=== PATIENT | male | born 1960 | race Caucasian/White ===

== ENCOUNTER 2016-10-10 07:43 | Day surgery (SDC) | payer OTHER ==
[~2016-10-10] VITALS: Ht 188 cm; Wt 95.5 kg
[2016-10-10 08:06] VITALS: BP 127/71
[2016-10-10] MEDS ORDERED: PLEASE ENTER HEIGHT AND WEIGHT MC SCH (08:30)
[2016-10-10] MEDS ORDERED: SODIUM CHLORIDE 0.9% 1,000 ML IV ONE (08:30)
[2016-10-10] MEDS ORDERED: ASPI-496 PO (08:31)
[2016-10-10] MEDS ORDERED: OMEP20TA62 PO (08:31)
[2016-10-10] MEDS ORDERED: MULT-6 PO (08:31)
[2016-10-10] MEDS ORDERED: PROPOFOL 10 MG/ML, 20ML ONE (09:16)
== END 2016-10-10 10:45 | disposition home or self-care (01) ==
LOC: CACL 07:43
PROVIDERS: ATTEND Internal Medicine Cardiovascular Disease
DX: I08.3 Combined rheumatic disorders of mitral, aortic and tricuspid valves (principal); I48.91 Unspecified atrial fibrillation; Z90.5 Acquired absence of kidney; Z88.6 Allergy status to analgesic agent; Z98.890 Other specified postprocedural states; Z82.49 Family history of ischemic heart disease and other diseases of the circulatory system; Z72.89 Other problems related to lifestyle
CPT/HCPCS: 93312; 93321; 93325; J2704

== ENCOUNTER 2016-10-20 07:16 | Day surgery (SDC) | payer OTHER ==
[2016-10-19 14:32] LABS: BLOOD UREA NITROGEN 20 mg/dL (7-18)
[~2016-10-20] VITALS: Ht 188 cm; Wt 95.5 kg
[~2016-10-20 07:16] MED LIST: ASPI-496 PO; MULT-6 PO; OMEP20TA62 PO
[2016-10-20] MEDS ORDERED: ASPI-515 PO (07:34)
[2016-10-20 08:00] VITALS: BP 147/77
[2016-10-20] MEDS ORDERED: BIVALIRUDIN 250 MG ONE (08:29)
[2016-10-20] MEDS ORDERED: FENTANYL PF 100 MCG/2ML ONE (08:29)
[2016-10-20] MEDS ORDERED: TICAGRELOR 90 MG TABLET ONE (08:29)
[2016-10-20] MEDS ORDERED: MIDAZOLAM 1 MG/ML, 5ML ONE (08:29)
[2016-10-20] MEDS ORDERED: VERAPAMIL 2.5 MG/ML, 2ML ONE (08:29)
[2016-10-20] MEDS ORDERED: HEPARIN 1,000 UNITS/ML, 10ML ONE (08:30)
[2016-10-20] MEDS ORDERED: LIDOCAINE 2%, 20ML ONE (08:30)
[2016-10-20] MEDS ORDERED: SODIUM CHLORIDE 0.9% 1,000 ML IV SCH ×2 (09:15→09:25)
== END 2016-10-20 12:40 ==
LOC: CACL 07:16
PROVIDERS: ATTEND Internal Medicine Cardiovascular Disease
DX: I34.0 Nonrheumatic mitral (valve) insufficiency (principal); I48.91 Unspecified atrial fibrillation; Z79.82 Long term (current) use of aspirin; Z88.6 Allergy status to analgesic agent
CPT/HCPCS: 36415; 71020; 80048; 85025; 93005; 93458; 99156; 99157; C1894; J1644; J2250; J3010; J3490; J7030; Q9967; J0583

== ENCOUNTER 2017-01-18 10:31 | Day surgery (SDC) | payer OTHER ==
[~2017-01-18] VITALS: Ht 188 cm; Wt 95.0 kg
[~2017-01-18 10:31] MED LIST changes: +ASPI-515 PO; +WARF5TAB PO
[2017-01-18] MEDS ORDERED: DEXTROSE 5% 500 ML IV PRN (10:59)
[2017-01-18] MEDS ORDERED: PROPOFOL 10 MG/ML, 20ML ONE (12:15)
[2017-01-19] MEDS ORDERED: MULTIVITAMIN 1 TABLET PO SCH ×2 (09:00)
[2017-01-19] MEDS ORDERED: ASPIRIN 81 MG TABLET EC PO SCH ×2 (09:00)
[2017-01-19] MEDS ORDERED: WARFARIN 5 MG TABLET PO-COUM SCH ×2 (09:00)
== END 2017-01-18 12:58 ==
LOC: CACL 10:31
PROVIDERS: ATTEND Internal Medicine Cardiovascular Disease
DX: I48.91 Unspecified atrial fibrillation (principal); I48.92 Unspecified atrial flutter; I34.1 Nonrheumatic mitral (valve) prolapse; Z79.82 Long term (current) use of aspirin; Z88.6 Allergy status to analgesic agent
CPT/HCPCS: 36415; 85610; 92960; 93005; J2704

== ENCOUNTER → 2017-03-06 | Outpatient (CLI) | payer OTHER | LOC: CVU 15:12 | PROVIDERS: ATTEND Internal Medicine Cardiovascular Disease | DX: I08.0 Rheumatic disorders of both mitral and aortic valves (principal); I48.91 Unspecified atrial fibrillation | CPT/HCPCS: 93306 ==

== ENCOUNTER 2017-05-28 06:34 | Day surgery (SDC) | payer OTHER ==
[2017-05-25 11:33] VITALS: BP 116/85
[2017-05-25 12:21] LABS: BASOPHILS # (AUTO) 0.02 x10^3/uL (0-0.1); BASOPHILS % (AUTO) 0 % (0-1); CALCIUM 8.7 mg/dL (8.5-10.1); CHLORIDE 106 mmol/L (98-107); EOSINOPHILS # (AUTO) 0.22 x10^3/uL (0-0.4); EOSINOPHILS % (AUTO) 3 % (1-7); LYMPHOCYTES # (AUTO) 2.47 x10^3/uL (1-3.4); LYMPHOCYTES % (AUTO) 38 % (22-44); MD NO; MEAN CORPUSCULAR HEMOGLOBIN 30.2 pg (27.5-34.5); MEAN CORPUSCULAR HGB CONC 34.1 g/dL (33.2-36.2); MEAN CORPUSCULAR VOLUME 88.5 fL (81-97); MEAN PLATELET VOLUME 10.6 fL (7.4-10.4); MONOCYTES # (AUTO) 0.45 x10^3/uL (0.2-0.8); MONOCYTES % (AUTO) 7 % (2-9); NEUTROPHILS # (AUTO) 3.41 x10^3/uL (1.8-6.8); NEUTROPHILS % (AUTO) 52 % (42-75); PLATELET COUNT 154 x10^3/uL (130-400); RED CELL DISTRIBUTION WIDTH 14.2 % (9.4-14.8)
[2017-05-25 12:24] LABS: ANION GAP 5 mmol/L (5-15); CREATININE 1.23 mg/dL (0.7-1.3)
[~2017-05-28] VITALS: Ht 188 cm; Wt 95.9 kg
[~2017-05-28 06:34] MED LIST changes: +METO50TA4 PO
[2017-05-28] MEDS ORDERED: SODIUM CHLORIDE 0.9% 1,000 ML IV SCH ×2 (06:40→07:00)
[2017-05-28] MEDS ORDERED: MAGN400T36 PO (06:58)
[2017-05-28] MEDS ORDERED: FENTANYL PF 250 MCG/5ML ONE (07:19)
[2017-05-28] MEDS ORDERED: MIDAZOLAM 1 MG/ML, 2ML ONE (07:19)
[2017-05-28 07:23] LABS: INTERNATIONAL NORMALIZED RATIO 1.07 (0.93-1.1)
[2017-05-28] MEDS ORDERED: ISOPROTERENOL 0.2MG/ML, 5ML ONE (08:04)
[2017-05-28] MEDS ORDERED: LIDOCAINE 2%, 20ML ONE (08:05)
[2017-05-28] MEDS ORDERED: HEPARIN 1,000 UNITS/ML, 10ML ONE (08:05)
[2017-05-28] MEDS ORDERED: PROPOFOL 10 MG/ML, 20ML ONE (08:10)
[2017-05-28] MEDS ORDERED: SUCCINYLCHOLINE 20 MG/ML, 10ML ONE (08:10)
[2017-05-28] MEDS ORDERED: ONDANSETRON 2MG/ML, 2ML ONE (08:10)
[2017-05-28] MEDS ORDERED: DEXAMETHASONE 4 MG/ML, 1ML ONE (08:10)
[2017-05-28] MEDS ORDERED: ROCURONIUM 10 MG/ML,10ML ONE (08:10)
[2017-05-28] MEDS ORDERED: FENTANYL PF 100 MCG/2ML IV PRN (09:30)
[2017-05-28] MEDS ORDERED: ONDANSETRON 2MG/ML, 2ML IVPush PRN (09:30)
[2017-05-28] MEDS ORDERED: HYDROmorphone 1 MG/ML, 1ML IV PRN (09:30)
[2017-05-28] MEDS ORDERED: MIDAZOLAM 1 MG/ML, 2ML IV PRN (09:30)
[2017-05-28] MEDS ORDERED: PROMETHAZINE 12.5 MG SUPP PR PRN (09:30)
[2017-05-28] MEDS ORDERED: LORazepam 2 MG/ML, 1ML IVPush PRN (09:30)
[2017-05-28] MEDS ORDERED: ACETAMINOPHEN 325 MG TABLET PO PRN (09:30)
[2017-05-28] MEDS ORDERED: OXYcodone 5 MG/5 ML ORAL.SOL UDC PO PRN (09:30)
== END 2017-05-28 11:22 ==
LOC: CACL 06:34
PROVIDERS: ATTEND Internal Medicine Cardiovascular Disease
DX: I48.91 Unspecified atrial fibrillation (principal); I34.0 Nonrheumatic mitral (valve) insufficiency; I49.3 Ventricular premature depolarization; Z85.528 Personal history of other malignant neoplasm of kidney; Z79.82 Long term (current) use of aspirin; Z88.6 Allergy status to analgesic agent; Z79.01 Long term (current) use of anticoagulants
CPT/HCPCS: 36415; 71046; 80048; 85025; 85610; 93312; 93321; 93325; 93653; J0330; J1100; J2250; J2405; J2704; J3010; J3490; J1644

== ENCOUNTER → 2018-03-01 | Outpatient (CLI) | payer OTHER ==
[~2018-03-01] MED LIST changes: +MAGN400T36 PO
== END | disposition home or self-care (01) ==
LOC: CFH 15:31
PROVIDERS: ATTEND Internal Medicine Cardiovascular Disease
DX: I08.0 Rheumatic disorders of both mitral and aortic valves (principal)
CPT/HCPCS: 93306

== ENCOUNTER → 2019-03-21 | Outpatient (CLI) | payer OTHER | END | disposition home or self-care (01) | LOC: CFH 08:32 | PROVIDERS: ATTEND Internal Medicine Cardiovascular Disease | DX: I08.3 Combined rheumatic disorders of mitral, aortic and tricuspid valves (principal); I48.91 Unspecified atrial fibrillation; Z85.528 Personal history of other malignant neoplasm of kidney; Z95.4 Presence of other heart-valve replacement | CPT/HCPCS: 93306 ==

== ENCOUNTER 2020-05-07 08:45 | Outpatient (CLI) | payer OTHER ==
[~2020-05-07 08:45] MED LIST changes: -WARF5TAB PO; +WARF5TAB2 PO
== END 2020-05-07 23:59 | disposition home or self-care (01) ==
LOC: CVU 08:45
PROVIDERS: ATTEND Internal Medicine Cardiovascular Disease
DX: I08.3 Combined rheumatic disorders of mitral, aortic and tricuspid valves (principal)
CPT/HCPCS: 93306